=== PATIENT | female | born 2000 | race Caucasian/White ===

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

== ENCOUNTER 2021-05-26 14:57 | Outpatient (REF) | payer BC, SELFPAY ==
[2021-05-27 15:41] LABS: Chlamydia Result Negative (Negative); GC Result Negative (Negative)
== END 2021-05-26 14:58 | disposition home or self-care (01) ==
LOC: NCHCN 14:57
PROVIDERS: PCP Family Medicine; Visit Provider Family Medicine
DX: Z11.3 Encounter for screening for infections with a predominantly sexual mode of transmission (principal)
CPT/HCPCS: 87491; 87591

== ENCOUNTER 2022-12-22 16:12 | Outpatient (REF) | payer SELFPAY ==
--- NOTE | 2022-12-22 13:40 | PAPFT_PTH ---
PATIENT: Jena Gamble LOC: [facility] U#:[id number] AGE/SX: 22/ ROOM: RE12/22/[address]: Batool Magallanes : 2000 BED: DIS: 12/22/2022 SPEC #: [id number] RECD: 12/23/22 12:57 STATUS: KATI REQ #: [id number] GARTH: 12/22/22 13:[address]: Batool Magallanes DEPT: [facility] Cytology RECD BY: Asha Gabriel Tissues: 1 - CX/ENDOCX FOR PAP SMEARS Procedures: PAP THIN PREP/[facility] Screening Comments: [id number] (CHLAMYDIA/GC)
[2022-12-24 15:16] LABS: Chlamydia Result Negative (Negative); GC Result Negative (Negative)
== END 2022-12-22 16:13 | disposition home or self-care (01) ==
LOC: NCHCN 16:12
PROVIDERS: PCP Family Medicine; Visit Provider Family Medicine
DX: Z11.3 Encounter for screening for infections with a predominantly sexual mode of transmission (principal); Z12.4 Encounter for screening for malignant neoplasm of cervix; Z00.00 Encounter for general adult medical examination without abnormal findings
CPT/HCPCS: 87491; 87591; 88142

== ENCOUNTER 2024-06-09 22:00 | Outpatient (REF) | payer OTHER, SELFPAY ==
--- OUTSIDE RECORDS SUMMARY | 2024-06-09 22:01 | XMS_ITS | Data Portability ---
Author Organization [place] - [facility] Address [address] [place] [address] Assessment No assessment recorded. Plan of Treatment Reminders Order Date Submit Date Provider Last Modified By Organization Details Last Modified Time Details Appointments Follow Up 30 2023 02:00P M Not available Not available Not available Lab CT + NG DNA, PCR, unspecifi ed specimen 2023 024 [id number] [facility] (Registration ), [address] [place] [address] [place], [address], 06/09/2024 17:01:15 Referral None recorded. Procedures None recorded. Surgeries None recorded. Imaging None recorded. Medication Orders Kourtney 14 mcg/24 hr (up to 3 years) 13.5 mg intrauter ine device 2023 024 [id number] [id number], [address], [place], [place], [id number], 06/09/2024 17:01:15 Patient TargetsNo targets recorded. Patient InstructionsNo instructions recorded. Reason for Referral None Reported. Problems Name Problem SNOMED Code Status Onset Date Resolution Date Notes Provider Name and Address Organization Details Recorded Time Overweig 487675382 Completed 201106/15/2012 Not Available [facility] 3 05:00:28 Acute pharyngi tis 099937495 Completed 201506/05/2016 05/24/20 16 - Comments only - Batool Maxwell MD - Advised conserv manageme nt. Reviewed indicati ons for re-evalu ation. Problem Code: J02.9; Problem Code Type: ICD-10; Not Available [facility] 3 05:00:28 Family history of breast cancer 524336319 Active 201712/23/19 23 - Comments only - Batool Maxwell MD - With known BRCA mutation . Reviewed option of genetic counseli ng and testing which she is not interest ed in pursuing at this time. She is aware that breast cancer screenin g should begin at age 35. Problem Code: Z80.3; Problem Code Type: ICD-10; Not Available [facility] 3 05:00:28 Venereal disease screenin g Active 201706/02/20 18 - Comments only - Batool Maxwell MD - sent and counseli carlos manuel provided . Problem Code: Z11.3; Problem Code Type: ICD-10; Not Available [facility] 3 05:00:28 Counseli ng Active 201712/23/19 23 - Comments only - Batool Maxwell MD - Happy with Kourtney, aware that will be due to be changed a year from May. Problem Code: Z71.89; Problem Code Type: ICD-10; Not Available [facility] 3 05:00:28 Intraute rine contrace ptive device in situ 074684017 Active 201706/02/20 18 - Comments only - Batool Maxwell MD - Kourtney inserted today. [place] of [place] so will forego 1 month check-up but will notify me if any concerns or ?'s. Problem Code: Z97.5; Problem Code Type: ICD-10; Not Available [facility] 3 05:00:28 Removal of intraute rine device Completed 202005/27/2021 Problem Code: Z30.432; Problem Code Type: ICD-10; Not Available [facility] 3 05:00:29 Follicul ar cysts of skin and subcutan eous tissue 166562193 Completed 202111/07/2021 11/05/19 22 - Comments only - Batool Maxwell MD - Suspecte d this was an inclusio n cyst that drained and now appears to be resolved . I doubt it will flareup again but I reviewed option of warm compress es and indicati ons for office visit if it does. Problem Code: L72.9; Problem Code Type: ICD-10; Not Available [facility] 3 05:00:29 Gynecolo gic examinat ion Active 202212/23/19 23 - Comments only - Batool Maxwell MD - Pap sent with chlamydi a screen. Low risk for other STDs, declined further screenin g. Received Tdap booster today, will return for COVID booster another day. Declines flu vaccine. Problem Code: Z01.419; Problem Code Type: ICD-10; Not Available [facility] 3 05:00:29 Adolesce nt care Completed 201501/07/2018 Problem Code: Z00.3; Problem Code Type: ICD-10; Not Available [facility] 3 05:00:31 Verruca plantari s [id number] Completed 201501/07/2018 Problem Code: B07.0; Problem Code Type: ICD-10; Not Available [facility] 3 05:00:31 Problem Notes None recorded. Procedures Surgical History Date Name Laterality Status Provider Name and Address Organization Details Recorded Time 4 IUD Replacement completed BATOOL MAXWELL MD [address], [place], [address] 06/09/2024 14:38:58 Imaging Results None recorded. Procedure Notes None recorded. Medical Equipment None Reported. Medications Name Sig Start Date Stop Date Status Note LastModified by Organization Details LastModified Time Kourtney 14 mcg/24 hr (up to 3 years) 13.5 mg intrauterine device active Not Available Not Available Not Available Vitals Date Recorded Body weight Body temperature Oxygen saturation Oxygen saturation in Arterial blood by Pulse oximetry Heart rate Systolic blood pressure Diastolic blood pressure Provider Name and Address Organization Details Last Updated DateTime 4 29704.6 6 g 98.4 [degF] 98 % 98 % 74 /min 116 mm[Hg] 62 mm[Hg] HINA CHOW LPN [facility] 4 14:01:48 Social History Question Answer Notes LastModified by Organizat ion Details LastModified Time Tobacco Smoking Status Never Smoker HINA CHOW, LYNNETTE null, [place] - [facility]. 06/09/2024 14:02:13 What Was The Date Of Your Most Recent Tobacco Screening? 06/09/2024 Information not available 06/09/2024 Has Tobacco Cessation Counseling Been Provided? No Information not available 06/09/2024 Do You Or Have You Ever Used Any Other Forms Of Tobacco Or Nicotine? No Information not available 06/09/2024 Sex: Female Functional Status None recorded. Mental Status None recorded. Family History Relationship Description Onset Age of this Age Resolved Age Notes Unspecified Relation Family history unknown Relative: 'First Degree Blood Relative'; Medical History No medical history recorded. Gynecological HistoryNo gynecological history recorded. Obstetrics History GPAL:G 0 P 0 0 0 0 Immunizations Vaccine Type Date Status Provider Name and Address Organization Details Recorded Time MMR 06/15/2005 completed Not Available [facility] 04:35:48 MMR 07/14/2001 completed Not Available [facility] 04:35:48 DTaP, unspecified formulation 1999 completed Not Available [facility] 08/27/2023 04:35:48 DTaP, unspecified formulation 02/24/2000 completed Not Available [facility] 08/27/2023 04:35:48 DTaP, unspecified formulation 04/28/2000 completed Not Available [facility] 08/27/2023 04:35:49 DTaP, unspecified formulation 06/15/2005 completed Not Available [facility] 08/27/2023 04:35:49 DTaP, unspecified formulation 07/14/2001 completed Not Available [facility] 08/27/2023 04:35:49 meningococcal ACWY, unspecified formulation 02/07/2013 completed Not Available [facility] 08/27/2023 04:35:49 meningococcal MCV4P 01/13/2018 completed Not Available [facility] 08/27/2023 04:35:50 Tdap 12/22/2022 completed Not Available [facility] 04:35:50 Tdap 06/15/2012 completed Not Available [facility] 04:35:50 HPV, unspecified formulation 02/07/2013 completed Not Available [facility] 08/27/2023 04:35:51 HPV, unspecified formulation 06/15/2012 completed Not Available [facility] 08/27/2023 04:35:51 HPV, unspecified formulation 09/12/2012 completed Not Available [facility] 08/27/2023 04:35:51 Hib, unspecified formulation 1999 completed Not Available [facility] 08/27/2023 04:35:52 Hib, unspecified formulation 02/24/2000 completed Not Available [facility] 08/27/2023 04:35:53 Hib, unspecified formulation 04/28/2000 completed Not Available [facility] 08/27/2023 04:35:53 varicella 06/15/2005 completed Not Available [facility] 04:35:54 varicella 08/11/2010 completed Not Available [facility] 04:35:54 Hep B, unspecified formulation 02/07/2013 completed Not Available [facility] 08/27/2023 04:35:55 Hep B, unspecified formulation 06/15/2012 completed Not Available [facility] 08/27/2023 04:35:56 Hep B, unspecified formulation 09/12/2012 completed Not Available [facility] 08/27/2023 04:35:56 Hep A, ped/adol, 2 dose 01/13/2018 completed Not Available [facility] 08/27/2023 04:35:56 polio, unspecified formulation 1999 completed Not Available [facility] 08/27/2023 04:35:57 polio, unspecified formulation 02/24/2000 completed Not Available [facility] 08/27/2023 04:35:57 polio, unspecified formulation 04/28/2000 completed Not Available [facility] 08/27/2023 04:35:57 polio, unspecified formulation 06/15/2005 completed Not Available [facility] 08/27/2023 04:35:57 Past Encounters Encounter ID Performer Location Encounter Start Date Encounter Closed Date Diagnosis/Indication Diagnosis SNOMED-CT Code [id number] HINA CHOW LPN [address] [address] 06/09/2024 13:52:37 06/09/2024 14:32:57 Venereal disease screening 833279482 Replacemen t of intrauterine contraceptive device 80987321 Health Concerns Section Related Observation LastModified by Organization Detai ls LastModified Time None Recorded Concern Status LastModified by Organization Details LastModified Time None Recorded Advance Directives Directive None Recorded Payers Encounter Date Sequence Insurance Name Policy Number Policy Jeffery Covered Member ID Jeffery Member ID Guarantor Name 06/09/2024 1 [facility] [id number] Jena Mclean [id number] Jena Mclean Notes Date Note Type Note Provider Name and Address Organization Details Recorded Time 06/09/2024 text/html HPI Notes: Here for IUD removal and reinsertion. She would like to continue with the Kourtney since it has been going well. Reports occasional light bleeding. Would like updated STI screening. No HIV or hep C risk factors. No history of PID. HINA CHOW LPN null, [place] - [facility]. 06/09/2024 14:44:25 OBGyn Episode No OBEpisode recorded.
--- OUTSIDE RECORDS SUMMARY | 2024-06-09 22:02 | XMS_ITS | Clinical Summary ---
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
--- OUTSIDE RECORDS SUMMARY | 2024-06-09 22:02 | XMS_ITS | Referral Summary ---
Author Organization [facility] Address [address] [place] [address] Care Team Providers Care Drivers License Examiner Name Role Phone Unavailable Primary Care Provider Unavailabl e Social History Tobacco Use Types Packs/Day Years Used Date Smoking Tobacco: Never Assessed Sex and Gender Information Value Date Recorded Sex Assigned at Not on file Gender Identity Not on file Sexual Orientation Not on file Plan of Treatment Not on file
--- OUTSIDE RECORDS SUMMARY | 2024-06-09 22:02 | XMS_ITS | Continuity of Care Document ---
Author Organization [place] - [facility] Address [address] [place] [address] Assessment No assessment recorded. Plan of Treatment Reminders Order Date Submit Date Provider Last Modified By Organization Details Last Modified Time Details Appointments Follow Up 30 2023 02:00P M Not available Not available Not available Lab CT + NG DNA, PCR, unspecifi ed specimen 2023 024 [id number] [facility] (Registration ), [address] [place] [address] [place], [address], 06/09/2024 17:01:15 Referral None recorded. Procedures None recorded. Surgeries None recorded. Imaging None recorded. Medication Orders Kourtney 14 mcg/24 hr (up to 3 years) 13.5 mg intrauter ine device 2023 024 [id number] [id number], [address], [place], [place], [id number], 06/09/2024 17:01:15 Patient TargetsNo targets recorded. Patient InstructionsNo instructions recorded. Reason for Referral None Reported. Problems Name Status Onset Date Resolution Date Notes Provider Name and Address Organization Details Recorded Time Overweight Completed 201106/15/2012 Not Available [facility] 3 05:00:28 Acute pharyngitis Completed 201506/05/2016 05/24/2016 - Comments only - Batool Maxwell MD - Advised conserv management. Reviewed indications for re-evaluatio n. Problem Code: J02.9; Problem Code Type: ICD-10; Not Available [facility] 3 05:00:28 Family history of breast cancer Active 201712/22/2022 - Comments only - Batool Maxwell MD - With known BRCA mutation. Reviewed option of genetic counseling and testing which she is not interested in pursuing at this time. She is aware that breast cancer screening should begin at age 35. Problem Code: Z80.3; Problem Code Type: ICD-10; Not Available [facility] 3 05:00:28 Venereal disease screening Active 201706/02/2018 - Comments only - Batool Maxwell MD - sent and counseling provided. Problem Code: Z11.3; Problem Code Type: ICD-10; Not Available [facility] 3 05:00:28 Counseling Active 201712/22/2022 - Comments only - Batool Maxwell MD - Happy with Kourtney, aware that will be due to be changed a year from May. Problem Code: Z71.89; Problem Code Type: ICD-10; Not Available [facility] 3 05:00:28 Intrauterine contraceptive device in situ Active 201706/02/2018 - Comments only - Batool Maxwell MD - Kourtney inserted today. [place] will be [place] of [place] so will forego 1 month check-up but will notify me if any concerns or ?'s. Problem Code: Z97.5; Problem Code Type: ICD-10; Not Available [facility] 3 05:00:28 Removal of intrauterine device Completed 202005/27/2021 Problem Code: Z30.432; Problem Code Type: ICD-10; Not Available [facility] 3 05:00:29 Follicular cysts of skin and subcutaneous tissue Completed 202111/07/2021 11/05/2021 - Comments only - Batool Maxwell MD - Suspected this was an inclusion cyst that drained and now appears to be resolved. I doubt it will flareup again but I reviewed option of warm compresses and indications for office visit if it does. Problem Code: L72.9; Problem Code Type: ICD-10; Not Available [facility] 3 05:00:29 Gynecologic examination Active 202212/22/2022 - Comments only - Batool Maxwell MD - Pap sent with chlamydia screen. Low risk for other STDs, declined further screening. Received Tdap booster today, will return for COVID booster another day. Declines flu vaccine. Problem Code: Z01.419; Problem Code Type: ICD-10; Not Available [facility] 3 05:00:29 Adolescent care Completed 201501/07/2018 Problem Code: Z00.3; Problem Code Type: ICD-10; Not Available [facility] 3 05:00:31 Verruca plantaris Completed 201501/07/2018 Problem Code: B07.0; Problem Code Type: ICD-10; Not Available [facility] 3 05:00:31 Problem Notes None recorded. Procedures Surgical History Date Name Laterality Status Provider Name and Address Organization Details Recorded Time IUD Replacement completed BATOOL MAXWELL MD [facility] [address], [place], [address] 06/09/2024 14:38:58 Imaging Results None recorded. Procedure [...] Address Organization Details Last Updated DateTime 4 05776.6 6 g 98.4 [degF] 98 % 98 % 74 /min 116 mm[Hg] 62 mm[Hg] HINA CHOW LPN [facility] 4 14:01:48 Social History Question Answer Notes LastModified by Organizat ion Details LastModified Time Tobacco Smoking Status Never Smoker HINA CHOW LPN [facility], [facility] 06/09/2024 14:02:13 What Was The Date Of [...] Recorded Time MMR 06/15/2005 completed Not Available [facility] 04:35:48 MMR 07/14/2001 completed Not Available [facility] 04:35:48 DTaP, unspecified formulation 1999 completed Not Available [facility] 08/27/2023 04:35:48 DTaP, unspecified formulation 02/24/2000 completed Not Available [facility] 08/27/2023 04:35:48 DTaP, unspecified formulation 04/28/2000 completed Not Available [facility] 08/27/2023 04:35:49 DTaP, unspecified formulation 06/15/2005 completed Not Available [facility] 08/27/2023 04:35:49 DTaP, unspecified formulation 07/14/2001 completed Not Available [facility] 08/27/2023 04:35:49 meningococcal ACWY, unspecified formulation 02/07/2013 completed Not Available [facility] 08/27/2023 04:35:49 meningococcal MCV4P 01/13/2018 completed Not Available [facility] 08/27/2023 04:35:50 Tdap 12/22/2022 completed Not Available [facility] 04:35:50 Tdap 06/15/2012 completed Not Available [facility] 04:35:50 HPV, unspecified formulation 02/07/2013 completed Not Available [facility] 08/27/2023 04:35:51 HPV, unspecified formulation 06/15/2012 completed Not Available [facility] 08/27/2023 04:35:51 HPV, unspecified formulation 09/12/2012 completed Not Available [facility] 08/27/2023 04:35:51 Hib, unspecified formulation 1999 completed Not Available [facility] 08/27/2023 04:35:52 Hib, unspecified formulation 02/24/2000 completed Not Available [facility] 08/27/2023 04:35:53 Hib, unspecified formulation 04/28/2000 completed Not Available [facility] 08/27/2023 04:35:53 varicella 06/15/2005 completed Not Available [facility] 04:35:54 varicella 08/11/2010 completed Not Available [facility] 04:35:54 Hep B, unspecified formulation 02/07/2013 completed Not Available [facility] 08/27/2023 04:35:55 Hep B, unspecified formulation 06/15/2012 completed Not Available [facility] 08/27/2023 04:35:56 Hep B, unspecified formulation 09/12/2012 completed Not Available [facility] 08/27/2023 04:35:56 Hep A, ped/adol, 2 dose 01/13/2018 completed Not Available [facility] 08/27/2023 04:35:56 polio, unspecified formulation 1999 completed Not Available [facility] 08/27/2023 04:35:57 polio, unspecified formulation 02/24/2000 completed Not Available [facility] 08/27/2023 04:35:57 polio, unspecified formulation 04/28/2000 completed Not Available [facility] 08/27/2023 04:35:57 polio, unspecified formulation 06/15/2005 completed Not Available [facility] 08/27/2023 04:35:57 Past Encounters Encounter ID Performer Location Encounter Start Date Encounter Closed Date Diagnosis/Indication Diagnosis SNOMED-CT Code [id number] HINA CHOW LPN [address] [address] 06/09/2024 13:52:37 06/09/2024 14:32:57 Venereal disease screening 313014948 Replacemen t of intrauterine contraceptive device 25635991 Health Concerns Section Related Observation LastModified by Organization Detai ls LastModified Time None Recorded Concern Status LastModified by Organization Details LastModified Time None Recorded Payers Encounter Date Sequence Insurance Name Policy Number Policy Jeffery Covered Member ID Jeffery Member ID Guarantor Name 06/09/2024 1 [employer] [id number] Jena Kavon Caridad [id number] Jena Mclean Notes Date Note Type Note Provider Name and Address Organization Details Recorded Time 06/09/2024 text/html HPI Notes: Here for IUD removal and reinsertion. She would like to continue with the Kourtney since it has been going well. Reports occasional light bleeding. Would like updated STI screening. No HIV or hep C risk factors. No history of PID. LYNNETTE SINGLETON, [place] - [facility]. 06/09/2024 14:44:25 OBGyn Episode No OBEpisode recorded.
--- OUTSIDE RECORDS SUMMARY | 2024-06-09 22:02 | XMS_ITS | Encounter Summary ---
Author Organization [facility] Address [address] [place] [address] Care Team Providers Care Verification Lead Name Role Phone Unavailable Primary Care Provider Unavailabl e Encounter Details Date Type Department Care Team (Late st Contact Info) Description 05/26/2021 Lab Requisition [facility] Pathology & Laboratory Medicine - [facility] [address] [place] [address] Outr Resulting Lab, Provider Social History Tobacco Use Types Packs/Day Years Used Date Smoking Tobacco: Never Assessed Sex and Gender Information Value Date Recorded Sex Assigned at Not on file Gender Identity Not on file Sexual Orientation Not on file documented as of this encounter Plan of Treatment Not on file documented as of this encounter Procedures Procedure Name Priority Date/Time Associated Diagnosis Comments CHLAMYDIA/N. GONORRHOEAE AMPLIFIED NUCLEIC ACID Routine 05/26/2021 10:30 EDT documented in this encounter Results * CHLAMYDIA/N. GONORRHOEAE AMPLIFIED RNA (05/26/2021 10:30 EDT) Neisseria gonorrhoeae Result Negative Negative 05/27/2021 15:36 EDT [facility] Chlamydia trachomatis Result Negative Negative 05/27/2021 15:36 EDT [facility] Urine URINE / Unknown 05/26/2021 1 0:30 EDT 05/26/2021 20:49 EDT Narrative [facility] - 05/27/2021 15:36 EDT A first catch urine specimen is acceptable for detection of Gonorrhea and Chlamydia, but might detect up to 10% fewer infections when compared with vaginal and endocervical swab samples. Provider Outr Resulting Lab MICROBIOLOGY - GENERAL ORDERABLES [facility] [address] [place] [address] documented in this encounter Visit Diagnoses Not on filedocumented in this encounter
--- OUTSIDE RECORDS SUMMARY | 2024-06-09 22:02 | XMS_ITS | Encounter Summary ---
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 Role Phone Unavailable Primary Care Provider Unavailabl e Encounter Details Date Type Department Care Team (Late st Contact Info) Description 12/24/2022 Lab Requisition [facility] - [facility] [address] [place] [address] Batool Magallanes MD [address] [place] [id number] Encounter for general adult medical examination without abnormal findings; Encounter for screening for malignant neoplasm of cervix Social History Tobacco Use Types Packs/Day Years Used Date Smoking Tobacco: Never Assessed Sex and Gender Information Value Date Recorded Sex Assigned at Not on file Gender Identity Not on file Sexual Orientation Not on file documented as of this encounter Plan of Treatment Not on file documented as of this encounter Procedures Procedure Name Priority Date/Time Associated Diagnosis Comments PAP TEST Today 12/22/2022 3:40 EST Encounter for general adult medical examination without abnormal findings Encounter for screening for malignant neoplasm of cervix documented in this encounter Results * PAP TEST (12/22/2022 3:40 EST) Specimens A. Cervix and/or Endocervix , ThinPrep Imaging System with Manual Evaluation 01/06/2023 13:08 [facility] Specimen Adequacy Satisfactory for Evaluation - transformation zone component present Scant squamous epithelial component 01/06/2023 13:08 [facility] General Categorization Negative for intraepithelial lesion or malignancy 01/06/2023 13:08 [facility] Attestation . 01/06/2023 13:08 [facility] at 1308 Clinical History SEE BELOW 01/07/20 13:08 EDT [facility] Performing Lab [facility] 01/06/2023 13:08 EDT [facility] Scanned Images 01/06/2023 13:08 EDT [facility] Papanicolaou smear specimen (specimen) CERVIX UTERI STRUCTURE / Unknown 12/22/2022 3:40 EST 12/24/2022 15:45 EST Batool Magallanes MD PATHOLOGY ORDERABLES [facility] [address] [place] [address] documented in this encounter Visit Diagnoses Diagnosis Encounter for general adult medical examination without abnormal findings Unspecified general medical examination Encounter for screening for malignant neoplasm of cervix Screening for malignant neoplasm of the cervix documented in this encounter
--- OUTSIDE RECORDS SUMMARY | 2024-06-09 22:02 | XMS_ITS | Encounter Summary ---
Author Organization [facility] Address [address] [place] [address] Care Team Providers Care Manometer Technician Name Role Phone Unavailable Primary Care Provider Unavailabl e Encounter Details Date Type Department Care Team (Late st Contact Info) Description 12/23/[address] [facility] & Laboratory Medicine - [facility] [address] [place] [address] Outr Resulting Lab, Provider Social History Tobacco [...] Associated Diagnosis Comments CHLAMYDIA/N. GONORRHOEAE AMPLIFIED NUCLEIC ACID, THINPREP Routine 12/23/2022 15:40 EST documented in this encounter Results * CHLAMYDIA/N. GONORRHOEAE AMPLIFIED RNA, THINPREP (12/23/2022 15:40 EST) Neisseria gonorrhoeae Result Negative Negative 12/24/2022 15:11 EST [facility] Chlamydia trachomatis Result Negative Negative 12/24/2022 15:11 EST [facility] Papanicolaou smear specimen (specimen) CERVIX UTERI STRUCTURE / Unknown 12/23/2022 15:40 EST 12/24/2022 9:30 EST Provider Outr Resulting Lab MICROBIOLOGY - GENERAL ORDERABLES [facility] [address] [place] [address] documented in this encounter Visit Diagnoses Not on filedocumented in this encounter
[2024-06-12 12:16] LABS: Chlamydia Result Negative (Negative); GC Result Negative (Negative)
== END 2024-06-09 22:01 | disposition home or self-care (01) ==
LOC: NCHCN 22:00
PROVIDERS: PCP Family Medicine; Visit Provider Family Medicine
DX: Z11.3 Encounter for screening for infections with a predominantly sexual mode of transmission (principal)
CPT/HCPCS: 87491; 87591